=== PATIENT | male | born 1970 | race Two or more races ===

== ENCOUNTER 2025-06-25 08:41 | Emergency (ER) | payer OTHER ==
[~2025-06-25] VITALS: Ht 177.8 cm; Wt 65.8 kg
[2025-06-25] MEDS ORDERED: ADULT LOW DOSE81 M1 PO (09:50)
== END 2025-06-25 11:09 | disposition home or self-care (01) ==
LOC: ER 08:42
DX: L97.529 Non-pressure chronic ulcer of other part of left foot with unspecified severity (principal); Z91.011 Allergy to milk products